=== PATIENT | female | born 1980 | race Caucasian/White ===

== ENCOUNTER → 2016-02-17 | Outpatient (REF) ==
[~2016-02-17] MED LIST: MASON NATURAL1000 MG PO; NORMODYNE200 MG PO; THE MEDICINE S200 M2 PO; VITAMIND3 5000 PO; ZYRTEC 10MG10 MG PO
== END ==
LOC: ZLAB.WCH 10:11
DX: Z01.89 Encounter for other specified special examinations (principal)

== ENCOUNTER → 2016-03-17 | Outpatient (CLI) | payer SELFPAY ==
[~2016-03-17] VITALS: Ht 167.6 cm; Wt 140.2 kg
[2016-03-17 15:28] VITALS: BP 140/82; PULSE 68
== END ==
LOC: LIGHT 15:09
DX: E66.1 Drug-induced obesity (principal); E16.1 Other hypoglycemia; E66.01 Morbid (severe) obesity due to excess calories; Z68.43 Body mass index [BMI] 50.0-59.9, adult; E88.81 Metabolic syndrome and other insulin resistance

== ENCOUNTER → 2016-03-31 | Outpatient (CLI) | payer SELFPAY | LOC: LIGHT 09:15 | DX: E66.1 Drug-induced obesity (principal); E16.1 Other hypoglycemia; E88.81 Metabolic syndrome and other insulin resistance; E66.01 Morbid (severe) obesity due to excess calories; Z68.43 Body mass index [BMI] 50.0-59.9, adult ==

== ENCOUNTER → 2016-04-28 | Outpatient (CLI) | payer SELFPAY ==
[~2016-04-28] VITALS: Ht 167.6 cm; Wt 140.2 kg
== END ==
LOC: LIGHT 15:46
DX: E66.1 Drug-induced obesity (principal); Z68.42 Body mass index [BMI] 45.0-49.9, adult; E16.1 Other hypoglycemia; E88.81 Metabolic syndrome and other insulin resistance

== ENCOUNTER → 2016-05-14 | Outpatient (CLI) | payer SELFPAY ==
[~2016-05-14] VITALS: Ht 167.6 cm; Wt 137.4 kg
[2016-05-14 15:12] VITALS: PULSE 87
== END ==
LOC: LIGHT 15:10
DX: E66.1 Drug-induced obesity (principal); E16.1 Other hypoglycemia; Z68.42 Body mass index [BMI] 45.0-49.9, adult; E88.81 Metabolic syndrome and other insulin resistance; Z90.49 Acquired absence of other specified parts of digestive tract

== ENCOUNTER 2016-10-14 10:58 | Outpatient (CLI) | payer BC ==
[~2016-10-14] VITALS: Ht 165.1 cm; Wt 145.5 kg
[~2016-10-14 10:58] MED LIST changes: -NORMODYNE200 MG PO
[2016-10-14 11:00] VITALS: BP 134/62; PULSE 94; TEMP 98.2
[2016-10-14 11:19] VITALS: BP 134/62; PULSE 94; TEMP 98.2
[2016-10-14] MEDS ORDERED: NORMODYNE200 MG PO (11:29)
[2016-10-14 11:38] VITALS: BP 145/65; PULSE 93
[2016-10-14 11:50] LABS: HEMATOCRIT 37.6 % (37.0-47.0); HEMOGLOBIN 12.5 g/dl (12.5-16.0); MEAN CELL VOLUME 93 fl (80.0-100.0); MEAN CORPUSCULAR HEMOGLOBIN 31 pg (27.0-31.0); MEAN CORPUSCULAR HGB CONC 33 g/dl (33.0-37.0); MEAN PLATELET VOLUME 10.3 fl (7.4-10.4); PLATELET COUNT 232 K/mm3 (130-400); RED BLOOD COUNT 4.05 M/mm3 (4.10-5.30); WHITE BLOOD COUNT 12.6 K/mm3 (4.8-10.8)
[2016-10-14 11:58] LABS: ADJUSTED CALCIUM 10.5 mg/dL (8.4-10.2); ALBUMIN 3.7 gm/dL (3.5-5.0); BILIRUBIN,TOTAL 0.4 mg/dL (0.0-1.0); CALCIUM 10.3 mg/dL (8.4-10.2); CREATININE, serum 0.5 mg/dL (0.52-1.25); POTASSIUM 3.9 mmol/L (3.4-5.0); TOTAL PROTEIN 7.1 gm/dL (6.4-8.2)
[2016-10-14 12:08] LABS: PH 5 (5-8); URINE APPEARANCE Hazy; URINE BACTERIA Rare /hpf; URINE BILIRUBIN Negative (NEGATIVE); URINE BLOOD 2+ (NEGATIVE); URINE COLOR Yellow; URINE GLUCOSE Negative (NEGATIVE); URINE KETONE Trace (NEGATIVE); URINE UROBILINOGEN Negative (NEGATIVE); URINE WBC 0-2 /hpf
[2016-10-14 12:22] VITALS: BP 129/58; PULSE 86
== END 2016-10-14 12:26 | disposition home or self-care (01) ==
LOC: LDRO 10:58
PROVIDERS: Student in an Organized Health Care Education/Training Program
DX: O09.522 Supervision of elderly multigravida, second trimester (principal); Z3A.21 21 weeks gestation of pregnancy

== ENCOUNTER 2016-11-09 12:20 | Outpatient (CLI) | payer BC ==
[~2016-11-09] VITALS: Ht 165.1 cm; Wt 145.5 kg
[2016-11-09] VITALS (9 sets, daily range): BP systolic 136–149; BP diastolic 60–75; PULSE 102–116; TEMP 98
[~2016-11-09 12:20] MED LIST changes: +NORMODYNE200 MG PO
[2016-11-09] MEDS ORDERED: PROCARDIA XL 3030 MG PO (12:31)
[2016-11-09] MEDS ORDERED: TUMS500 MG (12:31)
[2016-11-09] MEDS ORDERED: ASPIRIN 81M81 MG/TA2 PO (12:32)
[2016-11-09] MEDS ORDERED: DICLEGIS (12:32)
[2016-11-09] MEDS ORDERED: PRENATAL (12:32)
[2016-11-09 13:20] LABS: BASO # 0.1 (0.0-0.2); BASO % 0.4 % (0.0-2.0); EOS # 0.1 (0.0-0.7); EOS % 0.9 % (0-4.0); GRAN # 11.1 (1.4-6.5); GRAN % 80.2 % (42.2-75.2); HEMOGLOBIN 12.2 g/dl (12.5-16.0); LYMPH # 1.8 (1.2-3.4); LYMPH % 13.1 % (20.0-51.0); MEAN CELL VOLUME 92 fl (80.0-100.0); MEAN CORPUSCULAR HEMOGLOBIN 31 pg (27.0-31.0); MEAN CORPUSCULAR HGB CONC 33 g/dl (33.0-37.0); MEAN PLATELET VOLUME 10.8 fl (7.4-10.4); MONO # 0.7 (0.1-0.6); PLATELET COUNT 249 K/mm3 (130-400); RED BLOOD COUNT 3.96 M/mm3 (4.10-5.30); REDCELL DISTRIBUTION WIDTH-CV 14.3 % (11.5-14.5); WHITE BLOOD COUNT 13.8 K/mm3 (4.8-10.8)
[2016-11-09 13:21] LABS: ADJUSTED CALCIUM 10.4 mg/dL (8.4-10.2); ALBUMIN 3.6 gm/dL (3.5-5.0); BILIRUBIN,TOTAL 0.3 mg/dL (0.0-1.0); CALCIUM 10.1 mg/dL (8.4-10.2); CREATININE, serum 0.51 mg/dL (0.52-1.25); POTASSIUM 3.7 mmol/L (3.4-5.0); TOTAL PROTEIN 7.1 gm/dL (6.4-8.2)
[2016-11-09 13:22] LABS: PH 5 (5-8); URINE APPEARANCE Hazy; URINE BACTERIA Rare /hpf; URINE BILIRUBIN Negative (NEGATIVE); URINE BLOOD 1+ (NEGATIVE); URINE COLOR Yellow; URINE GLUCOSE Negative (NEGATIVE); URINE KETONE Trace (NEGATIVE); URINE UROBILINOGEN Negative (NEGATIVE)
[2016-11-09 13:24] LABS: HEMATOCRIT 36.6 % (37.0-47.0)
== END 2016-11-09 13:45 | disposition home or self-care (01) ==
LOC: LDRO 12:20
PROVIDERS: Obstetrics & Gynecology
DX: O13.2 Gestational [pregnancy-induced] hypertension without significant proteinuria, second trimester (principal); Z3A.24 24 weeks gestation of pregnancy

== ENCOUNTER → 2016-12-14 | Outpatient (CLI) | payer OTHER ==
[~2016-12-14] MED LIST changes: +ASPIRIN 81M81 MG/TA2 PO; +DICLEGIS; +PRENATAL; +PROCARDIA XL 3030 MG PO; +TUMS500 MG
== END ==
LOC: SUN.DIA 10:03
DX: O24.419 Gestational diabetes mellitus in pregnancy, unspecified control (principal); Z3A.35 35 weeks gestation of pregnancy; Z71.3 Dietary counseling and surveillance
CPT/HCPCS: G0108

== ENCOUNTER → 2016-12-16 | Outpatient (CLI) | payer OTHER | LOC: SUN.DIA 08:44 | DX: O24.414 Gestational diabetes mellitus in pregnancy, insulin controlled (principal); Z3A.30 30 weeks gestation of pregnancy; Z71.3 Dietary counseling and surveillance | CPT/HCPCS: G0108 ==

== ENCOUNTER 2019-12-17 09:35 | Emergency (ER) | payer BC ==
[~2019-12-17] VITALS: Ht 175.3 cm; Wt 136.4 kg
[2019-12-17 09:47] VITALS: TEMP 98.3
[2019-12-17 10:17] LABS: BASO % 0.1 % (0.0-2.0); GRAN # 7.3 (1.4-6.5); GRAN % 84.4 % (42.2-75.2); HEMATOCRIT 39.2 % (37.0-47.0); LYMPH # 0.9 (1.2-3.4); LYMPH % 10.3 % (20.0-51.0); MEAN CELL VOLUME 91 fl (80.0-100.0); MEAN CORPUSCULAR HEMOGLOBIN 30 pg (27.0-31.0); MEAN CORPUSCULAR HGB CONC 33 g/dl (33.0-37.0); MEAN PLATELET VOLUME 10.4 fl (7.4-10.4); MONO # 0.4 (0.1-0.6); MONO % 4.7 % (1.7-9.3); PLATELET COUNT 199 K/mm3 (130-400); RED BLOOD COUNT 4.31 M/mm3 (4.10-5.30); REDCELL DISTRIBUTION WIDTH-CV 14.1 % (11.5-14.5)
[2019-12-17 10:31] LABS: ALBUMIN 3.7 gm/dL (3.5-5.0); BILIRUBIN,TOTAL 0.4 mg/dL (0.0-1.0); C-REACTIVE PROTEIN 6.9 mg/dL (0.0-0.9); CALCIUM 8.7 mg/dL (8.4-10.2); CREATININE, serum 0.59 (0.52-1.25); POTASSIUM 3.4 mmol/L (3.4-5.0); TOTAL PROTEIN 7.2 gm/dL (6.4-8.2)
[2019-12-17 15:50] VITALS: BP 100/66; PULSE 92
== END 2019-12-17 15:25 | disposition home or self-care (01) ==
LOC: COL.ER 09:35
PROVIDERS: Nurse Practitioner
DX: U07.1 COVID-19 (principal); I10 Essential (primary) hypertension; Z32.02 Encounter for pregnancy test, result negative; Z90.49 Acquired absence of other specified parts of digestive tract; Z88.1 Allergy status to other antibiotic agents; Z88.8 Allergy status to other drugs, medicaments and biological substances; Z79.82 Long term (current) use of aspirin
CPT/HCPCS: J7030; Q9967

== ENCOUNTER → 2020-12-31 | Outpatient (CLI) | payer BC | LOC: MC.RAD 10:06 | DX: Z12.31 Encounter for screening mammogram for malignant neoplasm of breast (principal) ==